=== PATIENT | female | born 1985 | race Caucasian/White ===

== ENCOUNTER 2017-04-13 19:10 | Emergency (ER) | payer OTHER ==
[~2017-04-13] VITALS: Ht 162.6 cm; Wt 112.5 kg
[2017-04-13 19:16] VITALS: Ht 162.6 cm; Wt 112.5 kg
[2017-04-13 20:28] VITALS: BP 149/103
== END 2017-04-13 20:28 | disposition home or self-care (01) ==
LOC: ED 19:10
DX: S93.402A Sprain of unspecified ligament of left ankle, initial encounter (principal); Z88.8 Allergy status to other drugs, medicaments and biological substances; X50.1XXA Overexertion from prolonged static or awkward postures, initial encounter; Y93.01 Activity, walking, marching and hiking; Y92.89 Other specified places as the place of occurrence of the external cause; Y99.8 Other external cause status
CPT/HCPCS: J1885